=== PATIENT | female | born 1990 | race Caucasian/White ===

== ENCOUNTER 2019-01-26 06:57 | Day surgery (SDC) | payer OTHER ==
[2019-01-26 07:28] VITALS: BP 119/65; TEMP 98.1; BMI 26.2
[2019-01-26] MEDS ORDERED: hydrALAZINE 20 MG/ML VIAL SLOW IVP PRN (07:45)
--- NOTE | 2019-01-26 07:54 | PDOC.LDHP ---
Labor and Delivery H&P Chief complaint: contractions HPI: Patient of Dr Patiño Patient seen at bedside at 0645 Here for CTX since MD 28 yo at 36 weeks 5 days here for CTX, no recent sex, no LOF. Good FM. GDM HX. Review of Systems: complete ROS performed and as per HPI Current gestational age (weeks): 36 (5 days) Dating criteria: last menstrual period Grav: 3 Para: 2 OB History Details: x 2, one PTB at 36 and a half weeks, the other at 37 Current complications: gestational diabetes (A1) Abnormal US findings: No Current medications: pre-lloyd vitamins Previous surgical history: none Allergies/Adverse Reactions: Allergies Allergy/AdvReac Type Severity Reaction Status Date / Time No Allergy Information Allergy Unverified 01/26/19 07:50 Available Social history: none - Physical Exam Vital signs reviewed and normal: yes (119/65) General: NAD Lungs: CTAB Abdomen: gravid Extremeties: no edema FHT: category 1, variability present [place] contractions every: irregular - Vaginal Exam cm dilated: 1 (same as prior check in office) Effacement: 25% Station: -1 - Assessment Threatened PTL at 36 weeks, GBS results not back here - Plan Plan: observation in L&D (No change from last visit, but we will OBS for 1 HR; accucheck in process)
[2019-01-26 08:46] LABS: Glucose Accucheck Confirmation 78 mg/dl (70-105)
--- NOTE | 2019-01-27 06:57 | PDOC.EVN ---
Event Note - Event Note Event Note: Repeat cervical check unchanged at 1cm. Pt continues to feel occasional contractions. Pt lives about 1hr away. Pt offered to stay longer to better evaluate how things will progress. Pt has declined and desires to be discharged. She plans on staying in town for at least the next few hours before returning home or back to the hospital. Pt has been given term labor precautions and has been discharged home.
== END 2019-01-26 08:58 | disposition home or self-care (01) ==
LOC: L&D/OP 06:57
PROVIDERS: ATTEND Obstetrics & Gynecology
DX: O47.03 False labor before 37 completed weeks of gestation, third trimester (principal); O24.419 Gestational diabetes mellitus in pregnancy, unspecified control; Z3A.36 36 weeks gestation of pregnancy
CPT/HCPCS: 36415; 36416; 82947; 99283

== ENCOUNTER 2019-02-04 08:10 | Day surgery (SDC) | payer OTHER ==
[2019-02-04 08:48] VITALS: BP 105/68; TEMP 97.8; BMI 25.7
[2019-02-04] MEDS ORDERED: FLU VACC QS2019-20(6MOS UP)/PF 60 MCG/0.5 ML SYRINGE IM ONE (09:00)
[2019-02-04] MEDS ORDERED: hydrALAZINE 20 MG/ML VIAL SLOW IVP PRN (09:16)
--- NOTE | 2019-02-04 09:20 | PDOC.LDHP ---
Labor and Delivery H&P Chief complaint: contractions HPI: 37 yo at 38 wks here for CTX. Started 11pm last night, drank some water, but became consistent every 2-3 min. Denies LOF/VD/VB. Endorses FM. No recent trauma. Has a hx of PTL with her 2nd delivery at 37 weeks. Currently she is resting comfortably, denies any dysuria, chest pain, headache. Current gestational age (weeks): 38 Dating criteria: last menstrual period Grav: 3 Para: 2 OB History Details: 1 at 36.5 weeks, the other at 37 weeks (both SVDs) Current complications: gestational diabetes Abnormal US findings: No (per patient) Current medications: pre-lloyd vitamins Previous surgical history: none Allergies/Adverse Reactions: Allergies Allergy/AdvReac Type Severity Reaction Status Date / Time No Known Allergies Allergy Verified 02/04/19 09:07 Social history: none - Physical Exam Vital signs reviewed and normal: yes General: NAD, resting Heart: RRR Lungs: CTAB Abdomen: NTTP Extremeties: no edema FHT: category 1 (130/mod/accels) - Vaginal Exam cm dilated: 3 Effacement: 75% (80) Station: -2 - OB Labs Blood type: unknown RH: unknown Antibody Screen: unknown HIV: unknown RPR: unknown HEPSAg: unknown 1 hour GCT: unknown GBS: unknown Urine drug screen: not done Additional Labs: no records of labs - Assessment Labor r/o - Plan Plan: observation in L&D -: 28 yo at 38 weeks by LMP here for CTX 1. Term sIUP -FHT: 135/mod/accels -[place]: Uterine irritability -SVE: /-2 -Observe in L&D with cervical recheck in 2 hours. Continue monitoring -PO hydrate, walk around to see if CTX space out 2. A1GDM -Well controlled per patient -Reports 2hr PPs <[address] Ennis
--- NOTE | 2019-02-04 15:00 | PDOC.EVN ---
Event Note - Event Note Event Note: After eating and walking, CTX are still irregular. Unchanged cervical check at /-2. FHT Cat I. Discussed options w/ patient keeping longer vs. going home. Patient is comfortable with staying in town/going home but would like to leave. Both her and her expressed understanding and are comfortable with the plan. Gave return precuations, explained we are open 16/11. Discussed with Dr. Ennis
== END 2019-02-04 15:15 | disposition home or self-care (01) ==
LOC: L&D/OP 08:10
PROVIDERS: ATTEND Obstetrics & Gynecology
DX: O47.1 False labor at or after 37 completed weeks of gestation (principal); O24.410 Gestational diabetes mellitus in pregnancy, diet controlled; Z3A.38 38 weeks gestation of pregnancy

== ENCOUNTER 2019-02-07 10:26 | Inpatient (IN) | payer OTHER ==
[2019-02-07] MEDS ORDERED: NS / Oxytocin 40 units/1000ml 1,000 ML IV PRN (10:30)
[2019-02-07] MEDS ORDERED: Diphenoxylate HCl/Atropine Tablet PO PRN ×2 (10:30)
[2019-02-07] MEDS ORDERED: Acetaminophen 500 MG TAB PO PRN (10:30)
[2019-02-07] MEDS ORDERED: Butorphanol Tartrate 1 MG/ML VIAL SLOW IVP PRN (10:30)
[2019-02-07] MEDS ORDERED: Promethazine HCl 25 MG/ML VIAL IM PRN ×3 (10:30→15:43)
[2019-02-07] MEDS ORDERED: HYDROcodone/Acetaminophen 5/325 mg Tablet PO PRN ×2 (10:30)
[2019-02-07] MEDS ORDERED: hydrALAZINE 20 MG/ML VIAL SLOW IVP PRN ×2 (10:30→18:55)
[2019-02-07] MEDS ORDERED: Docusate 100 MG CAP PO PRN (10:30)
[2019-02-07] MEDS ORDERED: Ibuprofen 800 MG TAB PO PRN (10:30)
[2019-02-07] MEDS ORDERED: Lidocaine 1% (PF) 30 ML VIAL SC PRN (10:30)
[2019-02-07] MEDS ORDERED: Misoprostol 200 MCG TAB PR PRN (10:30)
[2019-02-07] MEDS ORDERED: NS w/ Oxytocin 10 units 500 ML IV SCH ×2 (10:30)
[2019-02-07] MEDS ORDERED: Ondansetron PF 4 MG/2 ML Vial IVP PRN ×4 (10:30→18:55)
[2019-02-07] MEDS ORDERED: Bupivacaine 0.25% HCL 30 ML VIAL ONE (11:00)
[2019-02-07] MEDS: Lactated Ringer's 1,000 ML IV SCH ×3 (11:03→14:57)
[2019-02-07 11:33] LABS: Hemoglobin 12.8 g/dL (12.0-16.0); Mean Corpuscular HGB CONC 34.4 g/dL (32.0-36.0); Mean Corpuscular Hemoglobin 30.3 pg (27.0-31.0); Mean Corpuscular Volume 88.2 fL (78.0-98.0); Mean Platelet Volume 8.3 fL (7.4-10.4); Platelet Count 147 thou/uL (130-400); RBC Distribution Width 14.7 % (11.5-14.5); Red Blood Cell (RBC) Count 4.22 mill/uL (4.20-5.40); White Blood Cell (WBC) Count 12.7 thou/uL (4.8-10.8)
[2019-02-07 12:12] LABS: Syphilis Antibody Nonreactive (Nonreactive); Syphilis Antibody Index 0.05 S/CO (<1.00 Non-Reactive)
[2019-02-07 12:14] LABS: HBSAg Index 0.12 S/CO (0-0.99); Hep B Surf Ag Non-Reactive S/CO (NonReactive)
[2019-02-07] MEDS ORDERED: Fentanyl 4 mcg/Bup 0.1% Cadd 100 ML ONE (13:58)
[2019-02-07] MEDS ORDERED: Fentanyl 100 MCG/2 ML VIAL ONE (14:18)
[2019-02-07] MEDS ORDERED: Fentanyl 100 MCG/2 ML VIAL EPIDURAL ONE (14:30)
[2019-02-07 15:36] VITALS: BMI 25.9
[2019-02-07] MEDS ORDERED: ePHEDrine/0.9% NaCl/PF SYRINGE 50 mg/10 ml SLOW IVP PRN ×2 (15:42→15:43)
[2019-02-07] MEDS ORDERED: Lactated Ringer's 500 ML IV PRN ×2 (15:42→15:43)
[2019-02-07] MEDS ORDERED: diphenhydrAMINE 50 MG/ML VIAL IVP PRN ×2 (15:42→15:43)
[2019-02-07] MEDS ORDERED: Naloxone HCl 0.4 mg/ml Vial IVP PRN ×4 (15:42→15:43)
[2019-02-07] MEDS ORDERED: Acetaminophen 325 MG TAB PO PRN ×2 (15:42→15:43)
[2019-02-07] MEDS ORDERED: Fentanyl 4 mcg/Bupivacaine 0.1% Cassette 100 ML EPIDURAL SCH (15:45)
[2019-02-07] MEDS ORDERED: Communication Order-Pharmacy FS SCH ×2 (15:45)
[2019-02-07] MEDS ORDERED: Calcium Carbonate 500 MG ChewTAB ONE (15:50)
[2019-02-07] MEDS ORDERED: Preparation H Ointment 28 GM TUBE PR PRN (18:55)
[2019-02-07] MEDS ORDERED: diphenhydrAMINE 25 MG CAP PO PRN (18:55)
[2019-02-07] MEDS ORDERED: Misoprostol 200 MCG TAB VAG PRN (18:55)
[2019-02-07] MEDS ORDERED: Zolpidem Tartrate 5 MG TAB PO PRN (18:55)
[2019-02-07] MEDS ORDERED: Bisacodyl 10 MG SUPP PR PRN (18:55)
[2019-02-07] MEDS ORDERED: Acetaminophen/Codeine 30-300mg Tablet PO PRN ×2 (18:55)
[2019-02-07] MEDS ORDERED: Milk Of Magnesia 30 ML UDCUP PO PRN (18:55)
[2019-02-07] MEDS ORDERED: Lanolin Ointment 7 GM TUBE TOP PRN (18:55)
[2019-02-07] MEDS ORDERED: Adacel (T-DAP) 0.5 ML SYRINGE IM ONE (18:55)
[2019-02-07] MEDS ORDERED: NS / Oxytocin 40 units/1000ml 1,000 ML IV SCH (19:00)
[2019-02-08] MEDS ORDERED: FLU VACC QS2019-20(6MOS UP)/PF 60 MCG/0.5 ML SYRINGE IM ONE (09:00)
[2019-02-08] MEDS: Docusate Calcium (SURFAK) 240 MG CAP PO SCH ×2 (19:52→21:41)
[2019-02-08] MEDS: Ibuprofen 800 MG TAB PO SCH ×2 (19:53→21:41)
[2019-02-08] MEDS: Ferrous Sulfate 325 MG TAB PO SCH (19:53)
[2019-02-08] MEDS: Prenatal Vitamin 1 TAB PO SCH (19:53)
[2019-02-09] MEDS: Ibuprofen 800 MG TAB PO SCH (05:48)
[2019-02-09 07:41] VITALS: BP 107/68; TEMP 97.6
[2019-02-09] MEDS: Docusate Calcium (SURFAK) 240 MG CAP PO SCH (09:11)
[2019-02-09] MEDS: Ferrous Sulfate 325 MG TAB PO SCH (09:11)
[2019-02-09] MEDS: Prenatal Vitamin 1 TAB PO SCH (09:11)
== END 2019-02-09 10:35 | disposition home or self-care (01) | DRG 807 ==
LOC: L&D 10:26 → 3SE 02-08 08:31
PROVIDERS: ADMIT Obstetrics & Gynecology; ATTEND Obstetrics & Gynecology
PROC: 10E0XZZ Delivery of Products of Conception, External Approach (ICD-10-PCS; principal; 2019-02-07)
DX: O24.429 Gestational diabetes mellitus in childbirth, unspecified control (principal); Z37.0 Single live birth; O99.02 Anemia complicating childbirth; D64.9 Anemia, unspecified; Z3A.38 38 weeks gestation of pregnancy
CPT/HCPCS: 36415; 85027; 86780; 86850; 86900; 86901; 87340; J2590; J3010; S0020